=== PATIENT | female | born 1980 | race Caucasian/White ===

== ENCOUNTER → 2019-03-28 | Outpatient (CLI) | payer OTHER, SELFPAY ==
--- NOTE | 2019-03-28 11:10 | CT_ITS ---
STUDY: CT RIGHT ANKLE WITHOUT CONTRAST REASON FOR EXAM: Right ankle sprain from rolling the ankle several days ago. TECHNIQUE: Thin section transaxial imaging of the ankle was obtained, with sagittal and coronal reconstructed images. Individualized dose optimization techniques were used for this CT. COMPARISON: None. FINDINGS: Normal visualized distal tibia and fibula. Normal talar dome. There is a small tibiotalar joint effusion (sagittal reconstructions 16-19). Normal talus, calcaneus, navicular and cuboid tarsal bones. Normal subtalar, talonavicular and calcaneocuboid articulations. Normal navicular-cuneiform, cuneiform tarsal bones and intercuneiform articulations. Normal tarsometatarsal articulations and metatarsals. Normal metatarsophalangeal joints, interphalangeal joints and phalanges. There is soft tissue swelling. CT/Extremity Lower without Contra IMPRESSION: Small tibiotalar joint effusion. Soft tissue swelling. No demonstrated fracture. Electronically Signed: Hector Regalado MD at 11:38 EDT Tel , Service support ,
== END | disposition home or self-care (01) ==
PROVIDERS: Referring Provider Physician Assistant; Visit Provider Physician Assistant
DX: S93.491A Sprain of other ligament of right ankle, initial encounter (principal)
CPT/HCPCS: 73700